=== PATIENT | male | born 1980 | race Two or more races ===

== ENCOUNTER → 2016-12-21 02:30 | Emergency (ER) | payer OTHER ==
[~2016-12-21 02:30] MED LIST: AMOXICILLIN500 M1 PO; BENADRYL ALLERG25 M1 PO; METOPROLOL SUCC25 MG PO; MOTRIN600 M2 PO; NO MEDICATIONS; NORCO1 TAB 10/3 PO; PREDNISONE PO; TYLENOL #3 PO; VOLTAREN50 MG PO
== END | disposition home or self-care (01) ==
LOC: SED 02:30
DX: K04.7 Periapical abscess without sinus (principal); I10 Essential (primary) hypertension; F17.200 Nicotine dependence, unspecified, uncomplicated
CPT/HCPCS: 99282

== ENCOUNTER 2017-01-26 22:27 | Emergency (ER) | payer OTHER ==
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
== END 2017-01-27 00:45 | disposition home or self-care (01) ==
LOC: SED 22:27
DX: S46.911A Strain of unspecified muscle, fascia and tendon at shoulder and upper arm level, right arm, initial encounter (principal); S86.911A Strain of unspecified muscle(s) and tendon(s) at lower leg level, right leg, initial encounter; R07.9 Chest pain, unspecified; F17.200 Nicotine dependence, unspecified, uncomplicated; V49.10XA Passenger injured in collision with unspecified motor vehicles in nontraffic accident, initial encounter
CPT/HCPCS: 29530; 36415; 71020; 72040; 73030; 73560; 99284